=== PATIENT | male | born 1980 | race Hispanic/Latino ===

== ENCOUNTER 2021-12-26 14:35 | Emergency (ER) | payer BC, SELFPAY ==
[2021-12-26] MEDS ORDERED: Lidocaine 4% Cream 5 GM TUBE w/ Tegaderm ONE (16:33)
[2021-12-26] MEDS ORDERED: Ibuprofen 200 MG TAB ONE (16:33)
[2021-12-26] MEDS ORDERED: Boostrix 0.5 ML (Tdap) VIAL (>/=7 yrs of age) ONE (16:44)
[2021-12-26] MEDS ORDERED: Lidocaine 1% (PF) 30 ML VIAL ONE (17:17)
== END 2021-12-26 17:48 | disposition home or self-care (01) ==
LOC: ERS 14:35
DX: M79.89 Other specified soft tissue disorders (principal); F17.200 Nicotine dependence, unspecified, uncomplicated
CPT/HCPCS: 26010; 90471; 90715; J2001

== ENCOUNTER 2024-10-29 12:59 | Outpatient (CLI) | payer OTHER | END 2024-10-29 13:00 | disposition home or self-care (01) | LOC: DTY/OP 12:59 | PROVIDERS: ATTEND Family Medicine | DX: I50.9 Heart failure, unspecified (principal); E11.69 Type 2 diabetes mellitus with other specified complication | CPT/HCPCS: 97802 ==